=== PATIENT | male | born 1965 | race Caucasian/White ===

== ENCOUNTER 2019-04-11 00:18 | Inpatient (IN) ==
[2019-04-11] MEDS ORDERED: ONDANSETRON 4 MG/2 ML VIAL IV STA (01:19)
[2019-04-11] MEDS ORDERED: SODIUM CHLORIDE 0.9% 1,000 ML IV STA (01:19)
[2019-04-11] MEDS ORDERED: DICYCLOMINE 20 MG/2 ML AMP IM ONE (01:19)
[2019-04-11] MEDS ORDERED: METOCLOPRAMIDE 10 MG/2 ML VIAL IV STA (01:19)
[2019-04-11] MEDS ORDERED: LOPERAMIDE 2 MG CAPSULE PO STA (01:19)
[2019-04-11] MEDS ORDERED: hydrALAZINE 20 MG/1 ML VIAL IV STA (01:27)
[2019-04-11 02:10] LABS: Basophils % 0.3 % (0.0-0.8); Hematocrit 47.6 VOL% (42.0-52.0); Hemoglobin 15.5 GM/DL (14.0-18.0); Immature Granulocytes % 0.3 %; Immature Granulocytes Absolute 0.01 #; Lymphocytes # 0.8 10*3/uL (1.4-4.0); Lymphocytes % 20.2 % (21.2-54.2); Mean Corpuscular HGB Conc 32.6 GM/DL (32-36); Mean Corpuscular Volume 96.6 FL (87-102); Mean Platelet Volume 10.4 FL (9.6-12.0); Monocytes % 16.5 % (1.7-12.7); Neutrophils % 61.7 % (38.7-73.9); Platelet Count 146 T/CUMM (130-400); Red Blood Count 4.93 MC/CUMM (3.8-5.5); Red Cell Distribution Width 13.9 % (9.3-17.3); White Blood Count 3.9 T/CUMM (4-12)
[2019-04-11 02:43] LABS: Alanine Aminotransferase 38 U/L (16-61); Albumin 3.3 G/DL (3.4-5.0); Alkaline Phosphatase 100 U/L (45-117); Amylase 107 U/L (25-115); Aspartate Amino Transferase 19 U/L (0-37); Blood Urea Nitrogen 40 MG/DL (7-18); Calcium 8.9 MG/DL (8.5-10.1); Glucose 99 MG/DL (74-106); Osmolality,Calculated 286.5 MOS/KG (273-304); Total Protein 7.6 G/DL (6.4-8.3)
[2019-04-11 02:46] LABS: Troponin I 0.141 NG/ML (0.00-0.045)
[2019-04-11 03:12] LABS: Band Neutrophils 5 % (0-10); Lymphocytes 16 % (20-55); Segmented Neutrophils 65 % (50-85); Total Cells Counted 100
[2019-04-11 03:13] LABS: Platelet Estimate Adequate
[2019-04-11 03:43] LABS: Amorphous Crystals,Urine Occasional /HPF (Few); Apearance,Urine Slightly Hazy (Clear); Bilirubin,Urine Negative (Negative); Blood, Urine Small mg/dL (Negative); Glucose,Urine (UA) Negative (Negative); Ketones,Urine Negative (Negative); Mucus,Urine Occasional /LPF (Occasional); Nitrite,Urine Negative (Negative); Protein,Urine >=500 MG/DL; RBC,Urine 4 /HPF (0-4); Squamous Epithelial Cell,Urine Occasional /HPF (0-10); Urine Color Yellow (Yellow); Urine Specific Gravity 1.008 (1.001-1.035); Urine Urobilinogen < 2.0 EU/DL (0.2-1.0); WBC,Urine <1 /HPF (0-6)
[2019-04-11] MEDS ORDERED: niCARdipine INJ 25 MG in SODIUM CHLORIDE 0.9% 240 ML IV PRN (04:26)
[2019-04-11] MEDS ORDERED: ONDANSETRON 4 MG/2 ML VIAL IV PRN (04:26)
[2019-04-11] MEDS ORDERED: ACETAMINOPHEN 325 MG TABLET PO PRN (04:26)
[2019-04-11] MEDS ORDERED: MORPHINE 4 MG/1 ML VIAL IV PRN (04:26)
[2019-04-11] MEDS ORDERED: NICOTINE 21 MG/24 HR PATCH TRANSDERM PRN (04:26)
[2019-04-11] MEDS ORDERED: diphenhydrAMINE CAP 25 MG CAPSULE PO PRN (04:26)
[2019-04-11] MEDS: niCARdipine INJ 25 MG in SODIUM CHLORIDE 0.9% 240 ML IV PRN ×3 (04:27→18:10)
[2019-04-11] MEDS: SODIUM CHLORIDE 0.9% 1,000 ML IV SCH ×2 (06:52→20:02)
[2019-04-11 07:06] LABS: Risk Ratio 2.73; VLDL CHOLESTEROL 36.8 MG/DL
[2019-04-11] MEDS: SPIRONOLACTONE 25 MG TABLET PO SCH (08:14)
[2019-04-11] MEDS: VENLAFAXINE 75 MG TABLET PO SCH (08:14)
[2019-04-11] MEDS: ASPIRIN EC 81 MG TABLET PO SCH (08:14)
[2019-04-11] MEDS: CARVEDILOL 25 MG TABLET PO SCH ×2 (08:46→21:16)
[2019-04-11] MEDS: ALLOPURINOL 100 MG TABLET PO SCH ×2 (08:49→21:16)
[2019-04-11] MEDS ORDERED: cloNIDine 0.3 MG/24 HR PATCH TRANSDERM SCH (09:00)
[2019-04-11 10:17] LABS: Osmolality,Calculated 290.3 MOS/KG (273-304)
[2019-04-11] MEDS ORDERED: POTASSIUM CHLORIDE 20 MEQ TABLET PO PRN (12:36)
[2019-04-11] MEDS ORDERED: niCARdipine INJ 50 MG in SODIUM CHLORIDE 0.9% 480 ML IV PRN (20:05)
[2019-04-11] MEDS: ATORVASTATIN 80 MG TABLET PO SCH (21:16)
[2019-04-12] MEDS: SODIUM CHLORIDE 0.9% 1,000 ML IV SCH (03:30)
[2019-04-12 04:47] LABS: Basophils % 0.2 % (0.0-0.8); Eosinophils # 0.1 10*3/uL (0.0-0.87); Eosinophils % 2.2 % (0.00-10.9); Hematocrit 44.9 VOL% (42.0-52.0); Hemoglobin 14.4 GM/DL (14.0-18.0); Immature Granulocytes % 0.2 %; Immature Granulocytes Absolute 0.01 #; Lymphocytes # 1.3 10*3/uL (1.4-4.0); Lymphocytes % 30.8 % (21.2-54.2); Mean Corpuscular HGB Conc 32.1 GM/DL (32-36); Mean Corpuscular Volume 97.6 FL (87-102); Mean Platelet Volume 10.8 FL (9.6-12.0); Monocytes % 14.8 % (1.7-12.7); Neutrophils % 51.8 % (38.7-73.9); Platelet Count 152 T/CUMM (130-400); Red Cell Distribution Width 13.6 % (9.3-17.3); White Blood Count 4.1 T/CUMM (4-12)
[2019-04-12 05:12] LABS: Calcium 8.9 MG/DL (8.5-10.1); Osmolality,Calculated 287.4 MOS/KG (273-304)
[2019-04-12 06:51] LABS: Albumin 3.1 G/DL (3.4-5.0); Bilirubin,Total 0.4 MG/DL (0.2-1.0); Calcium 8.9 MG/DL (8.5-10.1); Osmolality,Calculated 288.3 MOS/KG (273-304); Total Protein 7.1 G/DL (6.4-8.3)
[2019-04-12] MEDS: ASPIRIN EC 81 MG TABLET PO SCH (08:03)
[2019-04-12] MEDS: CARVEDILOL 25 MG TABLET PO SCH ×2 (08:04→20:40)
[2019-04-12] MEDS: SPIRONOLACTONE 25 MG TABLET PO SCH (08:04)
[2019-04-12] MEDS: ALLOPURINOL 100 MG TABLET PO SCH ×2 (08:04→20:40)
[2019-04-12] MEDS ORDERED: LISINOPRIL 10 MG TABLET PO SCH (09:00)
[2019-04-12] MEDS: CHOLECALCIFEROL 1,000 UNIT TABLET PO SCH (20:40)
[2019-04-12] MEDS: ATORVASTATIN 80 MG TABLET PO SCH (20:40)
[2019-04-13 05:00] LABS: Calcium 8.8 MG/DL (8.5-10.1); Osmolality,Calculated 283.7 MOS/KG (273-304)
[2019-04-13 08:06] VITALS: BP 143/102
[2019-04-13] MEDS: VENLAFAXINE 75 MG TABLET PO SCH (08:55)
[2019-04-13] MEDS: ALLOPURINOL 100 MG TABLET PO SCH (08:55)
[2019-04-13] MEDS: SPIRONOLACTONE 25 MG TABLET PO SCH (08:55)
[2019-04-13] MEDS: ASPIRIN EC 81 MG TABLET PO SCH (08:55)
[2019-04-13] MEDS: CHOLECALCIFEROL 1,000 UNIT TABLET PO SCH (08:56)
[2019-04-13] MEDS: CARVEDILOL 25 MG TABLET PO SCH (08:56)
== END 2019-04-13 10:11 | disposition home or self-care (01) | DRG 305 ==
LOC: N.ED 00:18 → N.EDINP 04:26 → SUATTDRO 04:26 → N.ICU 05:41 → N.2E 04-12 14:01
PROVIDERS: ADMIT Internal Medicine; ATTEND Internal Medicine

== ENCOUNTER 2022-08-05 15:36 | Inpatient (IN) ==
[2022-08-05 16:31] LABS: Basophils % 0.5 % (0.0-0.8); Eosinophils # 0.1 10*3/uL (0.0-0.87); Eosinophils % 1.6 % (0.00-10.9); Hematocrit 20.7 VOL% (42.0-52.0); Immature Granulocytes % 0.5 %; Immature Granulocytes Absolute 0.03 #; Lymphocytes # 1.2 10*3/uL (1.4-4.0); Lymphocytes % 21.3 % (21.2-54.2); Mean Corpuscular HGB Conc 33.8 GM/DL (32-36); Mean Corpuscular Volume 93.2 FL (87-102); Mean Platelet Volume 10.1 FL (9.6-12.0); Monocytes # 0.4 10*3/uL (0.11-0.8); Monocytes % 6.5 % (1.7-12.7); Neutrophils % 69.6 % (38.7-73.9); Platelet Count 160 T/CUMM (130-400); Red Blood Count 2.22 MC/CUMM (3.8-5.5); Red Cell Distribution Width 16.3 % (9.3-17.3); White Blood Count 5.5 T/CUMM (4-12)
[2022-08-05 16:47] LABS: Alanine Aminotransferase 14 U/L (16-61); Albumin 3.9 G/DL (3.4-5.0); Alkaline Phosphatase 105 U/L (45-117); Aspartate Amino Transferase < 3 U/L (0-37); Bilirubin,Total < 0.39 MG/DL (0.20-1.00); Blood Urea Nitrogen 171 MG/DL (7-18); Calcium 9.4 MG/DL (8.5-10.1); Carbon Dioxide 22 MMOL/L (21-32); Chloride 98 MMOL/L (98-107); Glucose 197 MG/DL (74-106); Osmolality,Calculated 336.7 MOS/KG (273-304); Potassium 3.4 MMOL/L (3.5-5.1); Sodium 138 MMOL/L (136-145); Total Protein 7.4 G/DL (6.4-8.2)
[2022-08-05] MEDS ORDERED: hydrALAZINE 20 MG/1 ML VIAL IV STA (17:41)
[2022-08-05] MEDS ORDERED: SODIUM CHLORIDE 0.9% 1,000 ML IV PRN (18:26)
[2022-08-05] MEDS ORDERED: traZODone 50 MG TABLET PO PRN (18:31)
[2022-08-05] MEDS ORDERED: GLUCAGON 1 MG VIAL IM PRN (18:48)
[2022-08-05] MEDS ORDERED: DEXTROSE 10% 250 ML BAG IV PRN (18:48)
[2022-08-05] MEDS ORDERED: DEXTROSE 50% 25 GM/50 ML VIAL IV PRN (18:48)
[2022-08-05 18:58] LABS: % Iron Saturation 40.1 % (18-50)
[2022-08-05 19:28] LABS: Hepatitis B Core IgM Quant 0.08 Index; Hepatitis B Surface Ag Quant < 0.10 Index; Hepatitis B Surface Ag Result Non-Reactive (NonReactive); Hepatitis C Virus Ab Quant < 0.02 Index; Hepatitis C Virus Ab Result Non-Reactive (NonReactive)
[2022-08-05] MEDS ORDERED: carvediloL 25 MG TABLET PO SCH (21:00)
[2022-08-05] MEDS: ATORVASTATIN 80 MG TABLET PO SCH (22:33)
[2022-08-06 05:40] LABS: Basophils % 0.4 % (0.0-0.8); Eosinophils # 0.1 10*3/uL (0.0-0.87); Eosinophils % 1.2 % (0.00-10.9); Hematocrit 21.9 VOL% (42.0-52.0); Hemoglobin 7.2 GM/DL (14.0-18.0); Immature Granulocytes Absolute 0.05 #; Lymphocytes # 1.2 10*3/uL (1.4-4.0); Lymphocytes % 25.2 % (21.2-54.2); Mean Corpuscular HGB Conc 32.9 GM/DL (32-36); Mean Corpuscular Volume 93.2 FL (87-102); Mean Platelet Volume 11.7 FL (9.6-12.0); Monocytes # 0.5 10*3/uL (0.11-0.8); Monocytes % 9.6 % (1.7-12.7); Neutrophils % 62.6 % (38.7-73.9); Platelet Count 163 T/CUMM (130-400); Red Blood Count 2.35 MC/CUMM (3.8-5.5); Red Cell Distribution Width 15.9 % (9.3-17.3); White Blood Count 4.9 T/CUMM (4-12)
[2022-08-06] MEDS: INSULIN LISPRO 100 UNIT/ML SUBCUT SCH ×4 (05:46→17:05)
[2022-08-06 05:59] LABS: Alanine Aminotransferase 13 U/L (16-61); Albumin 3.4 G/DL (3.4-5.0); Alkaline Phosphatase 100 U/L (45-117); Aspartate Amino Transferase < 3 U/L (0-37); Bilirubin,Direct < 0.100 MG/DL (0.0-0.20); Bilirubin,Indirect 0.3 MG/DL (0.0-1.0); Bilirubin,Total < 0.39 MG/DL (0.20-1.00); Blood Urea Nitrogen 158 MG/DL (7-18); Calcium 9.2 MG/DL (8.5-10.1); Carbon Dioxide 24 MMOL/L (21-32); Chloride 100 MMOL/L (98-107); Cholesterol 54 MG/DL (50-200); Glucose 138 MG/DL (74-106); HDL Cholesterol 27 MG/DL (40-60); Osmolality,Calculated 330.5 MOS/KG (273-304); Potassium 3.7 MMOL/L (3.5-5.1); Sodium 139 MMOL/L (136-145); Total Protein 6.9 G/DL (6.4-8.2); Triglycerides 90 MG/DL (2-150)
[2022-08-06] MEDS: hydrALAZINE 20 MG/1 ML VIAL IV PRN ×3 (06:00→17:26)
[2022-08-06] MEDS: carvediloL 25 MG TABLET PO SCH ×2 (08:48→17:26)
[2022-08-06] MEDS: SPIRONOLACTONE 25 MG TABLET PO SCH (08:48)
[2022-08-06] MEDS: FUROSEMIDE 40 MG TABLET PO SCH (08:48)
[2022-08-06] MEDS: lisinopriL 20 MG TABLET PO SCH (08:48)
[2022-08-06] MEDS: OMEGA 3 ACID ETHYL ESTERS 1 GM CAPSULE PO SCH (08:56)
[2022-08-06] MEDS: VENLAFAXINE XR 75 MG CAPSULE PO SCH (08:56)
[2022-08-06] MEDS: PANTOPRAZOLE 40 MG TABLET PO SCH (08:56)
[2022-08-06] MEDS: ASPIRIN EC 81 MG TABLET PO SCH (08:56)
[2022-08-06] MEDS: calcitrioL 0.25 MCG CAPSULE PO SCH (08:56)
[2022-08-06] MEDS: allopurinoL 100 MG TABLET PO SCH (08:58)
[2022-08-06] MEDS: CETIRIZINE 10 MG TABLET PO SCH (08:58)
[2022-08-06] MEDS: ONDANSETRON 4 MG/2 ML VIAL IV PRN (10:34)
[2022-08-06] MEDS ORDERED: HEPARIN 5,000 UNIT/1 ML VIAL ONE (11:57)
[2022-08-06] MEDS ORDERED: LIDOCAINE 1%/EPI INJ 20 ML VIAL ONE (11:57)
[2022-08-06] MEDS ORDERED: BUPIVACAINE MPF 0.25% 10 ML VIAL ONE (11:57)
[2022-08-06] MEDS ORDERED: fentaNYL 100 MCG/2 ML VIAL ONE (12:24)
[2022-08-06] MEDS ORDERED: MIDAZOLAM 2 MG/2 ML VIAL ONE (12:25)
[2022-08-06] MEDS ORDERED: KETAMINE 500 MG/10 ML VIAL ONE (12:25)
[2022-08-06] MEDS ORDERED: DEXTROSE 5% NACL 0.45% 1,000 ML IV SCH (12:30)
[2022-08-06] MEDS ORDERED: propofoL 200 MG/20 ML VIAL IV ONE (13:04)
[2022-08-06] MEDS ORDERED: SODIUM CHLORIDE 0.9% 100 ML IV ONE (13:04)
[2022-08-06] MEDS ORDERED: LIDOCAINE 2% 5 ML VIAL ONE (13:04)
[2022-08-06] MEDS ORDERED: HEPARIN 10,000 UNIT/10 ML VIAL IV PRN (14:22)
[2022-08-06] MEDS: ATORVASTATIN 80 MG TABLET PO SCH (21:13)
[2022-08-06] MEDS: MORPHINE 2 MG/1 ML SYRINGE IV PRN (21:14)
[2022-08-06] MEDS: HEPARIN 5,000 UNIT/1 ML VIAL SUBCUT SCH (21:23)
[2022-08-07] MEDS: INSULIN LISPRO 100 UNIT/ML SUBCUT SCH ×4 (00:03→18:45)
[2022-08-07] MEDS: HEPARIN 5,000 UNIT/1 ML VIAL SUBCUT SCH ×3 (06:03→21:26)
[2022-08-07] MEDS: MORPHINE 2 MG/1 ML SYRINGE IV PRN ×2 (06:03→21:23)
[2022-08-07 06:32] LABS: Basophils % 0.5 % (0.0-0.8); Eosinophils # 0.1 10*3/uL (0.0-0.87); Eosinophils % 1.2 % (0.00-10.9); Hematocrit 24.8 VOL% (42.0-52.0); Hemoglobin 8.1 GM/DL (14.0-18.0); Immature Granulocytes % 0.5 %; Immature Granulocytes Absolute 0.03 #; Lymphocytes # 1.1 10*3/uL (1.4-4.0); Lymphocytes % 16.9 % (21.2-54.2); Mean Corpuscular HGB Conc 32.7 GM/DL (32-36); Mean Corpuscular Volume 92.9 FL (87-102); Mean Platelet Volume 10.3 FL (9.6-12.0); Monocytes # 0.7 10*3/uL (0.11-0.8); Neutrophils % 70.9 % (38.7-73.9); Platelet Count 149 T/CUMM (130-400); Red Blood Count 2.67 MC/CUMM (3.8-5.5); Red Cell Distribution Width 16.4 % (9.3-17.3); White Blood Count 6.5 T/CUMM (4-12)
[2022-08-07 06:51] LABS: Osmolality,Calculated 312.8 MOS/KG (273-304); Potassium 3.9 MMOL/L (3.5-5.1)
[2022-08-07] MEDS: CETIRIZINE 10 MG TABLET PO SCH (08:46)
[2022-08-07] MEDS: ASPIRIN EC 81 MG TABLET PO SCH (08:46)
[2022-08-07] MEDS: calcitrioL 0.25 MCG CAPSULE PO SCH (08:46)
[2022-08-07] MEDS: FUROSEMIDE 40 MG TABLET PO SCH (08:46)
[2022-08-07] MEDS: lisinopriL 20 MG TABLET PO SCH (08:46)
[2022-08-07] MEDS: VENLAFAXINE XR 75 MG CAPSULE PO SCH (08:46)
[2022-08-07] MEDS: carvediloL 25 MG TABLET PO SCH ×2 (08:46→16:03)
[2022-08-07] MEDS: PANTOPRAZOLE 40 MG TABLET PO SCH (08:46)
[2022-08-07] MEDS: allopurinoL 100 MG TABLET PO SCH (08:46)
[2022-08-07] MEDS: FOLIC ACID 1 MG TABLET PO SCH (08:47)
[2022-08-07] MEDS: OMEGA 3 ACID ETHYL ESTERS 1 GM CAPSULE PO SCH (08:47)
[2022-08-07] MEDS: SPIRONOLACTONE 25 MG TABLET PO SCH (08:47)
[2022-08-07] MEDS: hydrALAZINE 20 MG/1 ML VIAL IV PRN ×3 (12:10→22:36)
[2022-08-07] MEDS: POLYETHYLENE GLYCOL POWDER 17 GM PACK PO SCH (15:04)
[2022-08-07] MEDS: hydrALAZINE 25 MG TABLET PO SCH ×2 (15:04→21:23)
[2022-08-07] MEDS: ATORVASTATIN 80 MG TABLET PO SCH (21:23)
[2022-08-08] MEDS: INSULIN LISPRO 100 UNIT/ML SUBCUT SCH ×4 (00:32→18:06)
[2022-08-08] MEDS: HEPARIN 5,000 UNIT/1 ML VIAL SUBCUT SCH ×3 (06:01→20:59)
[2022-08-08] MEDS: PANTOPRAZOLE 40 MG TABLET PO SCH (08:37)
[2022-08-08] MEDS: SPIRONOLACTONE 25 MG TABLET PO SCH (08:37)
[2022-08-08] MEDS: allopurinoL 100 MG TABLET PO SCH (08:37)
[2022-08-08] MEDS: lisinopriL 20 MG TABLET PO SCH (08:37)
[2022-08-08] MEDS: hydrALAZINE 25 MG TABLET PO SCH ×3 (08:37→20:49)
[2022-08-08] MEDS: calcitrioL 0.25 MCG CAPSULE PO SCH (08:38)
[2022-08-08] MEDS: FUROSEMIDE 40 MG TABLET PO SCH (08:38)
[2022-08-08] MEDS: ASPIRIN EC 81 MG TABLET PO SCH (08:38)
[2022-08-08] MEDS: FOLIC ACID 1 MG TABLET PO SCH (08:38)
[2022-08-08] MEDS: CETIRIZINE 10 MG TABLET PO SCH (08:38)
[2022-08-08] MEDS: VENLAFAXINE XR 75 MG CAPSULE PO SCH (08:38)
[2022-08-08] MEDS: OMEGA 3 ACID ETHYL ESTERS 1 GM CAPSULE PO SCH (08:38)
[2022-08-08] MEDS: carvediloL 25 MG TABLET PO SCH ×2 (08:38→16:22)
[2022-08-08] MEDS: POLYETHYLENE GLYCOL POWDER 17 GM PACK PO SCH (08:41)
[2022-08-08] MEDS: ATORVASTATIN 80 MG TABLET PO SCH (20:48)
[2022-08-08] MEDS: MORPHINE 2 MG/1 ML SYRINGE IV PRN (20:49)
[2022-08-09] MEDS: INSULIN LISPRO 100 UNIT/ML SUBCUT SCH ×4 (00:14→17:41)
[2022-08-09 05:28] LABS: Basophils % 0.3 % (0.0-0.8); Eosinophils # 0.1 10*3/uL (0.0-0.87); Eosinophils % 2.1 % (0.00-10.9); Hematocrit 24.8 VOL% (42.0-52.0); Hemoglobin 8.1 GM/DL (14.0-18.0); Immature Granulocytes % 0.5 %; Immature Granulocytes Absolute 0.03 #; Lymphocytes # 1.4 10*3/uL (1.4-4.0); Lymphocytes % 24.6 % (21.2-54.2); Mean Corpuscular HGB Conc 32.7 GM/DL (32-36); Mean Corpuscular Volume 93.9 FL (87-102); Mean Platelet Volume 9.9 FL (9.6-12.0); Monocytes # 0.7 10*3/uL (0.11-0.8); Monocytes % 11.9 % (1.7-12.7); Neutrophils % 60.6 % (38.7-73.9); Platelet Count 121 T/CUMM (130-400); Red Blood Count 2.64 MC/CUMM (3.8-5.5); White Blood Count 5.8 T/CUMM (4-12)
[2022-08-09] MEDS: HEPARIN 5,000 UNIT/1 ML VIAL SUBCUT SCH ×3 (05:48→21:03)
[2022-08-09 05:57] LABS: Calcium 9.4 MG/DL (8.5-10.1); Osmolality,Calculated 291.1 MOS/KG (273-304); Potassium 4.3 MMOL/L (3.5-5.1)
[2022-08-09] MEDS: ONDANSETRON 4 MG/2 ML VIAL IV PRN (09:11)
[2022-08-09] MEDS: MORPHINE 2 MG/1 ML SYRINGE IV PRN ×2 (09:11→20:44)
[2022-08-09] MEDS: VENLAFAXINE XR 75 MG CAPSULE PO SCH (09:13)
[2022-08-09] MEDS: POLYETHYLENE GLYCOL POWDER 17 GM PACK PO SCH (09:13)
[2022-08-09] MEDS: SPIRONOLACTONE 25 MG TABLET PO SCH (09:13)
[2022-08-09] MEDS: allopurinoL 100 MG TABLET PO SCH (09:14)
[2022-08-09] MEDS: OMEGA 3 ACID ETHYL ESTERS 1 GM CAPSULE PO SCH (09:14)
[2022-08-09] MEDS: FUROSEMIDE 40 MG TABLET PO SCH (09:14)
[2022-08-09] MEDS: hydrALAZINE 25 MG TABLET PO SCH (09:14)
[2022-08-09] MEDS: calcitrioL 0.25 MCG CAPSULE PO SCH (09:14)
[2022-08-09] MEDS: FOLIC ACID 1 MG TABLET PO SCH (09:14)
[2022-08-09] MEDS: carvediloL 25 MG TABLET PO SCH ×2 (09:14→17:15)
[2022-08-09] MEDS: CETIRIZINE 10 MG TABLET PO SCH (09:14)
[2022-08-09] MEDS: ASPIRIN EC 81 MG TABLET PO SCH (09:14)
[2022-08-09] MEDS: lisinopriL 20 MG TABLET PO SCH (09:14)
[2022-08-09] MEDS: PANTOPRAZOLE 40 MG TABLET PO SCH (09:14)
[2022-08-09] MEDS: ATORVASTATIN 80 MG TABLET PO SCH (20:43)
[2022-08-09] MEDS ORDERED: ALUMINUM/MAGNES/SIMETH MAX STR 30 ML UDCUP PO PRN (21:55)
[2022-08-10] MEDS: HEPARIN 5,000 UNIT/1 ML VIAL SUBCUT SCH ×3 (04:27→20:33)
[2022-08-10] MEDS: INSULIN LISPRO 100 UNIT/ML SUBCUT SCH ×4 (04:34→17:35)
[2022-08-10 05:26] LABS: Basophils % 0.5 % (0.0-0.8); Eosinophils # 0.1 10*3/uL (0.0-0.87); Eosinophils % 1.8 % (0.00-10.9); Hematocrit 26.6 VOL% (42.0-52.0); Hemoglobin 8.4 GM/DL (14.0-18.0); Immature Granulocytes % 0.4 %; Immature Granulocytes Absolute 0.02 #; Lymphocytes # 1.5 10*3/uL (1.4-4.0); Lymphocytes % 27.1 % (21.2-54.2); Mean Corpuscular HGB Conc 31.6 GM/DL (32-36); Mean Platelet Volume 9.7 FL (9.6-12.0); Monocytes # 0.7 10*3/uL (0.11-0.8); Monocytes % 12.7 % (1.7-12.7); Neutrophils % 57.5 % (38.7-73.9); Platelet Count 137 T/CUMM (130-400); Red Blood Count 2.77 MC/CUMM (3.8-5.5); Red Cell Distribution Width 16.1 % (9.3-17.3); White Blood Count 5.5 T/CUMM (4-12)
[2022-08-10 05:59] LABS: Calcium 9.3 MG/DL (8.5-10.1); Potassium 4.3 MMOL/L (3.5-5.1)
[2022-08-10] MEDS: calcitrioL 0.25 MCG CAPSULE PO SCH (09:09)
[2022-08-10] MEDS: lisinopriL 20 MG TABLET PO SCH (09:09)
[2022-08-10] MEDS: allopurinoL 100 MG TABLET PO SCH (09:09)
[2022-08-10] MEDS: FOLIC ACID 1 MG TABLET PO SCH (09:09)
[2022-08-10] MEDS: OMEGA 3 ACID ETHYL ESTERS 1 GM CAPSULE PO SCH (09:09)
[2022-08-10] MEDS: carvediloL 25 MG TABLET PO SCH ×2 (09:09→17:50)
[2022-08-10] MEDS: FUROSEMIDE 40 MG TABLET PO SCH (09:09)
[2022-08-10] MEDS: ASPIRIN EC 81 MG TABLET PO SCH (09:09)
[2022-08-10] MEDS: PANTOPRAZOLE 40 MG TABLET PO SCH (09:10)
[2022-08-10] MEDS: CETIRIZINE 10 MG TABLET PO SCH (09:10)
[2022-08-10] MEDS: VENLAFAXINE XR 75 MG CAPSULE PO SCH (09:10)
[2022-08-10] MEDS: SPIRONOLACTONE 25 MG TABLET PO SCH (09:10)
[2022-08-10] MEDS: POLYETHYLENE GLYCOL POWDER 17 GM PACK PO SCH (09:10)
[2022-08-10] MEDS: MELOXICAM 7.5 MG TABLET PO SCH (15:59)
[2022-08-10] MEDS: ATORVASTATIN 80 MG TABLET PO SCH (21:10)
[2022-08-11] MEDS: INSULIN LISPRO 100 UNIT/ML SUBCUT SCH ×3 (04:34→13:18)
[2022-08-11] MEDS: HEPARIN 5,000 UNIT/1 ML VIAL SUBCUT SCH ×2 (04:35→14:01)
[2022-08-11 06:16] LABS: Osmolality,Calculated 286.2 MOS/KG (273-304); Potassium 4.4 MMOL/L (3.5-5.1)
[2022-08-11] MEDS: MELOXICAM 7.5 MG TABLET PO SCH (09:03)
[2022-08-11] MEDS: calcitrioL 0.25 MCG CAPSULE PO SCH (09:03)
[2022-08-11] MEDS: VENLAFAXINE XR 75 MG CAPSULE PO SCH (09:03)
[2022-08-11] MEDS: CETIRIZINE 10 MG TABLET PO SCH (09:04)
[2022-08-11] MEDS: PANTOPRAZOLE 40 MG TABLET PO SCH (09:04)
[2022-08-11] MEDS: carvediloL 25 MG TABLET PO SCH (09:04)
[2022-08-11] MEDS: allopurinoL 100 MG TABLET PO SCH (09:04)
[2022-08-11] MEDS: FOLIC ACID 1 MG TABLET PO SCH (09:04)
[2022-08-11] MEDS: OMEGA 3 ACID ETHYL ESTERS 1 GM CAPSULE PO SCH (09:04)
[2022-08-11] MEDS: lisinopriL 20 MG TABLET PO SCH (09:04)
[2022-08-11] MEDS: SPIRONOLACTONE 25 MG TABLET PO SCH (09:04)
[2022-08-11] MEDS: ASPIRIN EC 81 MG TABLET PO SCH (09:04)
[2022-08-11] MEDS: POLYETHYLENE GLYCOL POWDER 17 GM PACK PO SCH (09:06)
[2022-08-11 11:26] VITALS: BP 127/82
== END 2022-08-11 15:33 | disposition home or self-care (01) | DRG 699 ==
LOC: N.ED 15:36 → SUATTDRO 18:19 → N.EDINP 18:19 → N.3E 19:42
PROVIDERS: ADMIT Internal Medicine; ATTEND Emergency Medicine